=== PATIENT | female | born 1940 | race Caucasian/White ===

== ENCOUNTER → 2016-10-17 | Outpatient (CLI) | payer MEDICARE, OTHER ==
[~2016-10-17] MED LIST: ALPHAGAN 05 ML/1 BOT OPHTH; APRESOLINE10 MG PO; ASPIRIN EC81 MG PO; BRILINTA90 MG PO; CALCIUM CARBON600 MG PO; CITRACAL+D(315M1 TAB PO; CLARITIN10 M3 PO; HYDRODIURIL25 MG PO; K-TAB ER20 MEQ PO; LIPITOR80 MG PO; LOPRESSOR25 MG PO; NASAL ALLERGY16.9 ML NOSE; NEURONTIN100 MG PO; NORCO 5-325 MG1 TAB PO; NORVASC5 MG PO; PENTASA500 MG PO; PLETAL (NON-FO100 MG PO; PRESERVISION L1 EACH PO; PRILOSEC20 MG PO; REFRESH PLUS OPHTH; TRUSOPT 2% OPTH10 ML OPHTH
== END | disposition disaster alternative care site (69) ==
LOC: LNHI 17:35
DX: I25.10 Atherosclerotic heart disease of native coronary artery without angina pectoris (principal); E78.2 Mixed hyperlipidemia; I10 Essential (primary) hypertension; R60.9 Edema, unspecified; I70.209 Unspecified atherosclerosis of native arteries of extremities, unspecified extremity

== ENCOUNTER → 2016-10-19 | Outpatient (CLI) | payer MEDICARE, OTHER ==
--- NOTE | ~2016-10-19 | ESTC ---
Cardiac Perfusion Imaging Demographics Patient Name VIELKA Ontiveros Gender Female Patient Number [id number] Race Visit Number [id number] Ethnicity [employer] ID Room Number Accession Number [id number] Height 58 inches Date of 1940 Weight 145 pounds Stephie Hollins Date of study 10/19/2016 Physician Supervising /ZULLY PALMER Technologist Zuleyka Conde MD Ordering Physician Stress driver service technician Stress ECG Reading Yuki Lopez Nurse Hieu Horvath Physician Medications Reviewed with Patient prior to Procedure. Procedure Admit Source:Other. Procedure Type: Nuclear Stress Test:Pharmacological, Lexiscan, Cardiolite Stress Test Procedure Start time: 10/19/2016 09:31 Indications: Family history of coronary artery disease. Risk Factors The patient risk factors include:peripheral arterial disease, Current/Recent(w/in 1 year) tobacco use, hypercholesterolemia, hypertension and family history of premature CAD. Conclusions Summary 1. Perfusion Images: The overall quality of the study is fair, due to gastrointestinal tracer uptake. Left ventricular cavity size is normal on stress and rest images. There is no evidence of abnormal lung activity. The right ventricle is not visualized and cannot be assessed. Stress imaging reveals a medium sized area of moderate decreased isotope uptake in the lateral wall, anterior wall and basal inferior wall of the left ventricle. Rest imaging reveals mild to moderate decrease in tracer uptake in the anterior wall. Gated imaging reveals normal wall motion with calculated LVEF 51% Impression ECG portion of the stress test is clinically negative for ischemia by diagnostic criteria. Myocardial perfusion imaging is moderately abnormal. Images reveal a medium sized area of moderate lateral wall and basal inferior wall ischemia and mild anterior wall ischemia. Gated wall motion appears normal with LVEF 51%. This is a intermediate to high risk stress test. Discussed findings with Dr. Mirza. Stress Protocols Resting ECG Normal sinus rhythm. Pre-stress physical exam: Patient assessed by Dr Mirza prior to testing. Stress Protocol:Pharmacologic Predicted HR: 144 bpm ECG Findings No ECG changes suggestive of ischemia. Arrhythmias PACs PVCs Symptoms Shortness of breath. Stress Interpretation Appropriate hemodynamic response to Lexiscan. No significant ST-T wave changes with Lexiscan. ECG portion is negative for ischemia by diagnostic criteria. Imaging Results Applied corrections - Motion correction applied High risk findings Summed scores - Summed stress score: 8 - Summed rest score: 2 - Summed difference score: 6 Stress ejection Ejection fraction:51 % EDV :108 ml ESV :53 ml Stroke volume :55 ml LV mass :146 gr Imaging Protocols Rest Stress Isotope:Tc99m Sestamibi IV Isotope: Tc99m Sestamibi IV Isotope dose:10.6 mCi Isotope dose:33.1 mCi Date:10/19/2016 07:39 Date:10/19/2016 10:12 Technique: SPECT Technique: Gated Supine SPECT Supine Scan Time:30 minutes post injection Scan Time:45-60 minutes post injection Procedure Medications - Regadenoson (Lexiscan) 0.4 mg IV over 10-15 sec. I.V. 0.4 mg. Medications administered per verbal order and read back to physician prior to administration. Medical History Admission Data Admission date: 10/19/2016 Admission Time: 07:20 Hospital Status: Outpatient. Signatures dtt: KAM BARNES dtd: 10/19/16930 Physician Self Edit
== END | disposition disaster alternative care site (69) ==
LOC: GRAD 07:20
DX: I25.10 Atherosclerotic heart disease of native coronary artery without angina pectoris (principal); Z82.49 Family history of ischemic heart disease and other diseases of the circulatory system
CPT/HCPCS: A9500; J2785

== ENCOUNTER 2016-11-09 06:51 | Outpatient (CLI) | payer MEDICARE, OTHER ==
[~2016-11-09] VITALS: Ht 147.3 cm; Wt 64.6 kg
--- NOTE | ~2016-11-09 | CATH ---
Demographics Patient Name VIELKA Ontiveros Gender Female Date of 1940 Age 76 year(s) Patient Number [id number] Date of Study 11/09/2016 Visit Number [id number] Room Number G6[address] [place] [id number] Ht 147.32 cm Wt 64.6 kg Referring Blue Delarosa MD Primary Physician Physician Performing Efstratiou Secondary Physician Physician Allie Lopez MD Diagnostic Efstratiou Assisting Physician Physician Allie Lopez MD Interventional Efstratiou Physician Cutting Machine Offbearer Physician Allie Lopez MD Findings and Conclusions Diagnostic Findings and Conclusion Heavily calcified coronaries. Mid RCA 95%. Diagnostic Recommendations PCI to RCA. Interventional Findings and Conclusion Successful PCI to RCA. Due to stent recoil it had to be buttressed with [id number]. Interventional Recommendations Aspirin and Brilinta. Smoking cessation. Peripheral Findings and Conclusions Left external Iliac is 100%. Left subclavian is 95%. Right external iliac is patent. Peripheral Recommendations Continue to monitor left subclavian. Procedure Description The patient was brought to the diagnostic cardiac catheterization-EP laboratory in the fasting, non-sedated state. Informed consent was obtained in the written and verbal form after the risks and benefits were explained. The patient had no further questions and agreed to proceed. The planned puncture-incision site(s) were shaved and prepped with ChloraPrep and draped in the usual sterile manner. Conscious sedation, supplemental oxygen, and pain control medications were delivered by a registered nurse under physician guidance. Surface ECG rhythm, blood pressure measurement, and pulse oximetry were monitored throughout the procedure. Arterial access. The access site was infiltrated with lidocaine. The vessel was entered with the Seldinger technique. A sheath was advanced into the vessel and used for catheter placement. Selective left coronary angiography. A catheter was advanced into the left coronary vessel ostium under Fluoroscopic guidance. Contrast was injected by hand. Images were obtained in multiple projections. Selective right coronary angiography. A catheter was advanced into the right coronary vessel ostium under fluoroscopic guidance. Contrast was injected by hand. Images were obtained in multiple projections. Angioplasty and Stent Placement: A guiding catheter was used to intubate the vessel. A 0.14 wire was then used to cross the lesion. A balloon catheter was placed across the lesion and inflated. The balloon catheter was then removed. A Drug Eluting Stent x 2 were placed and inflated. Post placement angiograms were performed. Arterial artery hemostasis was achieved. The patient was transferred to a regular nursing floor via cart accompanied by a nurse. The patient left the laboratory in stable condition. Peripheral Procedure Description Selective Subclavian Angiography: Under fluoroscopic guidance a catheter was advanced to the subclavian artery. Contrast was injected and images were obtained. Diagnostic Cath Status: Elective Interventional Cath Status: Urgent Procedure Procedure Type Diagnostic procedure:Angiography:, Coronary Angios PCI procedure:Drug Eluting Coronary Stent:, RCA Peripheral Cath Diagnostic Procedure:Upper Extremity Angio:, Subclavian Angio:, Left Indications: Hypertension, Hyperlipidemia and Abnormal adenosine/cardiolite. The procedure was explained in detail to the patient. Risks, complications and alternative treatments were reviewed. Written consent was obtained. Medications Reviewed with Patient prior to Procedure. Angiographic Findings Dominance: Right Cardiac Arteries and Lesion Findings LMCA: Normal (0% Stenosis).patent. LAD: Lesion on Mid LAD: Mid subsection.30% stenosis . Lesion on 1st Diag: Proximal subsection.75% stenosis . Lesion on 2nd Diag: Proximal subsection.30% stenosis . LCx: Lesion on Prox CX: Proximal subsection.20% stenosis . Lesion on 1st Ob Bhavna: Proximal subsection.20% stenosis . RCA: Lesion on Mid RCA: Mid subsection.95% stenosis 38 mm length reduced to 10%. Pre procedure CORRIE III flow was noted. Post Procedure CORRIE III flow was present. The guidewire cross was successful.The lesion was diagnosed as a high risk lesion.Culprit lesion. Devices used - Emerge Balloon 2.0 x 15. 2 inflation(s) to a max pressure of: 14 brad. - Emerge Balloon 3.0 x 20. 2 inflation(s) to a max pressure of: 16 brad. - NC Emerge Balloon 3.5 x 15. 3 inflation(s) to a max pressure of: 18 brad. - Whisper Wire .014 x 190. Number of passes: 1. - Promus Premier 3.5 x 38 Stent. 1 inflation(s) to a max pressure of: 14 brad. - Emerge Balloon 2.0 x 12. 2 inflation(s) to a max pressure of: 20 brad. - Emerge Balloon 2.5 x 12. 4 inflation(s) to a max pressure of: 22 brad. - NC Emerge Balloon 4.0 x 15. 5 inflation(s) to a max pressure of: 20 brad. - NC Emerge Balloon 2.5 x 12. 1 inflation(s) to a max pressure of: 26 brad. - NC Emerge Balloon 3.0 x 12. 2 inflation(s) to a max pressure of: 26 brad. - Promus Premier 3.5 x 16 Stent. 1 inflation(s) to a max pressure of: 26 brad. - NC Emerge Balloon 4.0 x 8. 3 inflation(s) to a max pressure of: 28 brad. Coronary Tree Procedure Data Procedure Date Date: 11/09/2016Start: :17 AMEnd: 12:10 PM Entry Locations - Percutaneous access was performed through the Left Femoral artery. Hemostasis was successfully obtained using Manual Compression. Entry Comments: Unable to advance wire.. Closure Comments: manual compression held to left groin by Matt Olvera for 20 minutes.. - Retrograde Percutaneous access was performed through the Right Femoral artery (Primary location). A 5 Fr sheath was inserted. This was exchanged for a 6 Fr sheath. Hemostasis was successfully obtained using Manual Compression. Closure Comments: manual pressure held to right groin for 20 minutes by Margarette Zazueta. Procedure Medications Order and Administration + + + + + !Time !Medication !Dosage !Route ! + + + + + !11/09/2016 09:14 AM!Versed !0.5 mg !I.V. ! + + + + + !11/09/2016 09:18 AM!Oxygen !2 l/min !NC ! + + + + + !11/09/2016 09:19 AM!Fentanyl !25 mcg !I.V. ! + + + + + !11/09/2016 09:26 AM!Versed !0.5 mg !I.V. ! + + + + + 11/09/2016 09:26 AM!Fentanyl !25 mcg !I.V. ! + + + + + !11/09/2016 09:31 AM!0.9% NaCl !999 ml/hr !I.V. bolus ! + + + + + !11/09/2016 09:38 AM!0.9% NaCl !100 ml !I.V. bolus ! + + + + + !11/09/2016 09:51 AM!Heparin (ACC_3) !7000 units!I.V. bolus ! + + + + + !11/09/2016 10:34 AM!Potassium Chloride !40 meq !I.V. ! + + + + + 11/09/2016 10:51 AM!Heparin (ACC_3) !1000 units!I.V. bolus ! + + + + + !11/09/2016 10:52 AM!Versed !0.5 mg !I.V. ! + + + + + !11/09/2016 11:27 AM!Protamine !20 mg !I.V. ! + + + + + !11/09/2016 11:29 AM!Brilinta (Ticagrelor) (ACC_20)!180 mg !P.O. ! + + + + + !11/09/2016 11:40 AM!Fentanyl !50 mcg !I.V. ! + + + + + !11/09/2016 12:09 PM!Oxygen ! !NC ! + + + + + Devices Used - A6 Fr. BS JR 4 Diag. Catheterwas used for:Right coronary angiography. - A6 Fr. BS JL 3.5 Diag. Catheterwas used for:Left coronary angiography. - A6 Fr. JJ 3DRC Diag. Catheter. Comments: used for right subclavian artery angiogram.. - A6 Fr. HS Guide Catheterwas used for:RCA Intervention. - A6 Fr. Guidlinerwas used for:RCA Intervention. Contrast Material - Isovue 232432 ml Fluoroscopy Time: Diagnostic: 39:18 minutes. Total: 39:18 minutes. Fluoroscopy Dose: Diagnostic: 1246 mGy. Total: 1246 mGy. Estimated Blood Loss: 20 ml. Additional [facility] PCI Information PCI Indication:PCI for high risk Non-STEMI or unstable angina. Medical History Performed Procedures and Imaging Results - Stress testing with SPECT MPIwas performed. Results were: Positive. Risk/Extent of ischemia was: Intermediate risk. History of Disease + + + + !Diagnosis !Date !Comments ! + + + + !Hypertension ! ! ! + + + + !CAD ! ! ! + + + + Allergies - Other:(diazepam). - Other:(clopidogrel). Risk Factors The patient risk factors include:peripheral arterial disease, cerebrovascular disease, treated hypercholesterolemia, treated hypertension, family history of premature CAD, last creatinine: 0.8 mg/dl, creatinine clearance: 61.01 ml/min, dyslipidemia and Current/Recent(w/in 1 year) tobacco use. Admission Data Admission Date: 11/09/2016 Admission Time: 06:51 AM Admit Source: Other Insurance Payors: Medicare. Admission Medications + +------+------+ + + + + !Medication !Dosage!Times !Last !Last !Administered !Comments ! ! ! !Per !Delivery !Delivery ! ! ! ! ! ! ! !Time ! ! ! + +------+------+ + + + + !Beta ! ! !11/09/2016 !12:00 AM !Yes ! ! !Marta ! ! ! ! ! ! ! !(any) ! ! ! ! ! ! ! + +------+------+ + + + + !Statin ! ! !11/09/2016 !12:00 AM !Yes ! ! !(any) ! ! ! ! ! ! ! + +------+------+ + + + + !Aspirin ! ! !11/09/2016 !12:00 AM !Yes ! ! !(any) ! ! ! ! ! ! ! + +------+------+ + + + + Clinical Evaluation Leading to Procedure - The patient's CAD presentation was assessed as: Stable angina. - The patient's anginal syndrome during the past two weeks was assessed as: Class II according to the [place] [employer] Classification System (CCS). Anti-anginal medications were prescribed during the past two weeks. The medications are: Beta Blockers and Ca channel Blockers. Snapshots Hemodynamics Condition: Rest O2 Consumption: Estimated: 144.04Heart Rate: 71 bpm Pressures (mmHg) +-----+ + !Site !Pressure ! +-----+ + !AO !189/52 (102) ! +-----+ + !AO !19564 (107) ! +-----+ + Shunts Oxygen Values O2 Capacity 184.96 O2 Consumption 144.04 Signatures dtt: Vinita Mirza dtd: 11/09/16 0917 Physician Self Edit
[~2016-11-09 06:51] MED LIST changes: -BRILINTA90 MG PO
[2016-11-09 08:28] LABS: INR - (THERAPEUTIC) 1.02 (0.92-1.07); PROTIME 10.7 SECONDS (9.8-11.4)
[2016-11-09 09:48] LABS: BASOPHIL % 0.6 %; EOSINOPHIL # 0.1 K/uL (0.0-0.5); HEMATOCRIT 39.1 % (33.0-46.0); HEMOGLOBIN 13.6 g/dL (10.0-15.0); IMMATURE GRANULOCYTE % 0.1 %; LYMPHOCYTE # 1.4 K/uL (0.8-4.0); LYMPHOCYTE % 19.9 %; MCH 34.1 pg (27.0-34.0); MCHC 34.8 gm/dL (32.0-36.5); MONOCYTE # 0.4 K/uL (0.0-1.0); MONOCYTE % 5.5 %; MPV 12.4 fl (9.4-12.4); NEUTROPHIL % 72.9 %; NRBC % 0 /100WBC (0-0.00); PLATELET COUNT 122 K/uL (150-450); RBC 3.99 M/uL (3.50-5.50); RDW-CV 13.2 % (11.9-14.6); WBC 6.9 K/uL (4.0-11.0)
[2016-11-09 10:05] LABS: ALBUMIN 1.9 gm/dL (3.5-5.0); ANION GAP 9.8 (10.0-19.0); CALCIUM 7.5 mg/dL (8.5-10.5); CREATININE 0.8 mg/dL (0.5-1.1); POTASSIUM 2.8 mMol/L (3.7-5.1); TOTAL BILIRUBIN 0.4 mg/dL (0.0-1.5); TOTAL PROTEIN 5.5 g/dL (6.0-8.4)
--- NOTE | 2016-11-09 17:45 | NUR ---
Significant event: Pt arrived on unit at 1220. A&Ox3. VSS on RA. Heart cath to bilateral groins. Groins soft and dressings c/d/i. No complaints of pain. Significant PVD so BPs must be taken on left lower leg. Follow up: D/c tomorrow
--- NOTE | 2016-11-10 03:27 | NUR ---
Pt a/o x4. vss on RA, afebrile. Groin sites benign. pulses present. denies pain. Nicotine patch removed at 3rd assessment per pt request-states couldn't sleep and wondering if that was the problem. sba, on portable tele. moves well Plan: con't current plan of care.
[2016-11-10 07:45] LABS: ANION GAP 11.1 (10.0-19.0); CALCIUM 7.5 mg/dL (8.5-10.5); CREATININE 0.6 mg/dL (0.5-1.1); POTASSIUM 3.1 mMol/L (3.7-5.1); TOTAL PROTEIN 5.3 g/dL (6.0-8.4)
[2016-11-10 07:49] LABS: ALBUMIN 1.9 gm/dL (3.5-5.0); TOTAL BILIRUBIN 0.5 mg/dL (0.0-1.5)
[2016-11-10] MEDS ORDERED: BRILINTA90 MG PO (14:44)
== END 2016-11-10 14:20 | disposition disaster alternative care site (69) ==
LOC: GCAT 06:51 → GPCU 06:51 → GPOC 07:00 → GPCU 11:15 → GCAT 11-10 14:20
PROVIDERS: Internal Medicine Cardiovascular Disease
PROC: 4A023N7 Measurement of Cardiac Sampling and Pressure, Left Heart, Percutaneous Approach (ICD-10-PCS; principal; 2016-11-09)
PROC: B216YZZ Fluoroscopy of Right and Left Heart using Other Contrast (ICD-10-PCS; 2016-11-09)
DX: I25.10 Atherosclerotic heart disease of native coronary artery without angina pectoris (principal)
CPT/HCPCS: C1725; C1769; C1874; C1887; C1894; C9600; J1644; J2001; J2250; J2720; J3010; J3480; J7030; J7050

== ENCOUNTER → 2016-11-21 | Outpatient (CLI) | payer MEDICARE, OTHER ==
[~2016-11-21] MED LIST changes: +BRILINTA90 MG PO
[2016-11-21 17:10] LABS: ANION GAP 12.9 (10.0-19.0); CALCIUM 8.5 mg/dL (8.5-10.5); CREATININE 0.8 mg/dL (0.5-1.1); MAGNESIUM 1.9 mg/dL (1.8-2.6)
[2016-11-21 17:11] LABS: POTASSIUM 2.9 mMol/L (3.7-5.1)
== END ==
LOC: LNHI 16:34
PROVIDERS: Internal Medicine Cardiovascular Disease
DX: I25.10 Atherosclerotic heart disease of native coronary artery without angina pectoris (principal); E78.2 Mixed hyperlipidemia; I10 Essential (primary) hypertension